=== PATIENT | female | born 1935 | race Caucasian/White ===

== ENCOUNTER 2021-12-17 16:09 | Emergency (ER) | payer MEDICARE, OTHER ==
[~2021-12-17] VITALS: Ht 152.4 cm; Wt 58.2 kg
[~2021-12-17 16:09] MED LIST: AMLODIPINE BES2.5 MG PO; CALTRATE 600+D1 EACH PO; CENTRUM SILVER1 EAC3 PO; ESTAZOLAM1 MG PO; GLUCOSAMINE 1,1 EACH PO; HYDROCHLOROTHIA25 MG PO; LOSARTAN POTAS100 MG PO; PLAVIX75 MG PO; PRAVASTATIN SOD20 MG PO; TYLENOL WITH C1 EACH PO
[2021-12-17] MEDS ORDERED: LOSARTAN POTASS25 MG PO (16:32)
[2021-12-17] MEDS ORDERED: DILT-XR180 MG (16:32)
[2021-12-17] MEDS ORDERED: ATORVASTATIN CA10 MG PO (16:32)
[2021-12-17] MEDS ORDERED: VITAMIN D325 MCG (16:32)
[2021-12-17] MEDS ORDERED: ULTRACET TABLE1 EACH (16:32)
[2021-12-17] MEDS ORDERED: HYDRALAZINE HCL25 MG PO (16:32)
[2021-12-17] MEDS ORDERED: NEURONTIN100 MG PO (16:32)
[2021-12-17] MEDS ORDERED: FEROSUL325 MG PO (16:32)
== END 2021-12-17 18:34 | disposition home or self-care (01) ==
LOC: FSED 16:52
DX: S50.02XA Contusion of left elbow, initial encounter (principal); W07.XXXA Fall from chair, initial encounter; Y92.89 Other specified places as the place of occurrence of the external cause; I10 Essential (primary) hypertension; E78.5 Hyperlipidemia, unspecified; N18.9 Chronic kidney disease, unspecified; E78.00 Pure hypercholesterolemia, unspecified; M54.9 Dorsalgia, unspecified; G89.29 Other chronic pain; R94.31 Abnormal electrocardiogram [ECG] [EKG]; Z86.73 Personal history of transient ischemic attack (TIA), and cerebral infarction without residual deficits
CPT/HCPCS: 70450; 72125; 80053; 81003; 82553; 84484; 85025; 85610; 93005; 99284